=== PATIENT | male | born 1985 | race Two or more races ===

== ENCOUNTER → 2025-06-05 | Outpatient (CLI) | payer MEDICAID, SELFPAY ==
--- NOTE | 2025-06-05 11:00 | XR_ITS ---
Examination: Abdomen sonogram, complete Date and time of exam: June 05, 2025, 1117 hours INDICATIONS: Outside abnormal liver enzymes on laboratory examination 1 month ago. Technique: Multiple real-time grayscale transabdominal sonographic images of the abdomen have been obtained. Findings: Normal gallbladder Normal common bile duct Pancreatic head 2.7 cm Aorta not enlarged. Liver 14.2 cm fatty infiltration smooth contour Normal hepatopetal portal venous flow Patent IVC Right kidney 10.8 cm renal cortex 1.5 cm Left kidney 12.3 cm renal cortex 2.5 cm Mild renal scar formation Spleen 11.2 cm IMPRESSION: Normal gallbladder Mild bilateral renal scarring
== END | disposition home or self-care (01) ==
LOC: CDIM 11:09
PROVIDERS: Referring Provider Internal Medicine; Visit Provider Internal Medicine
DX: N28.89 Other specified disorders of kidney and ureter (principal)
CPT/HCPCS: 76700